=== PATIENT | male | born 1980 | race Caucasian/White ===

== ENCOUNTER 2021-12-22 11:18 | Emergency (ER) | payer BC, SELFPAY ==
[2021-12-22 11:20] VITALS: BP 150/103; PULSE 77; RESP 18; TEMP 36.8; O2SAT 97; BMI 32.5
[2021-12-22 11:52] VITALS: BP 150/103; PULSE 77; RESP 18; TEMP 36.8; O2SAT 97
--- NOTE | 2021-12-22 12:01 | HMH.EDUTC ---
[facility] [place] Impression: COVID-19 Sinusitis Qualifiers: Sinusitis location: unspecified location Chronicity: acute Recurrence: non-recurrent Qualified Code(s): J01.90 - Acute sinusitis, unspecified Disposition: Home, Self-Care Condition on Discharge: Good Instructions: DI for Sinusitis, DI for COVID-19 (Suspected or Confirmed ), Preventing the Spread of Coronavirus Discharge Instructions Additional Instructions: Drink plenty of fluids. Take tylenol or ibuprofen for pain or fever. Take the medications as directed. Follow up with your regular doctor. GO TO THE ER FOR ANY WORSENING SYMPTOMS Prescriptions: Brompheniramine/Pseudoephed/Dm [Bromfed Dm Cough Syrup] 5 ml PO Q6HP PRN #240 ml PRN Reason: Cough Transmission Status: Received by [facility] #[id number] Ibuprofen [Ibuprofen 800mg Tablet] 800 mg PO Q8HP PRN #30 tab PRN Reason: Moderate Pain Transmission Status: Pending to [facility] #[id number] methylPREDNISolone [Medrol] 4 mg PO DIRECTED 6 Days #21 packet Transmission Status: Received by [facility] #[id number] guaiFENesin [Mucinex 600mg tablet] 1 - 2 tab PO BIDP PRN #30 tab PRN Reason: Congestion Transmission Status: Received by [facility] #[id number] Azithromycin [Z-Kayode 250mg Tab*] 250 mg PO UD DOSE PK #6 tab Transmission Status: Received by [facility] #[id number] Referrals: Provider,Referral, MD [Primary Care Provider] - Time of Disposition: 12:11 Medical Decision Making - Medical Records Medical records reviewed: No: I reviewed the patient's medical records. - Garett Inquiry Pt receiving controlled substance: No Vital Signs: 12/22/21 11:20 12/22/21 11:52 Temperature 98.2 F 98.2 F Temperature Source Oral Pulse Rate 77 Pulse Rate [Left Brachial] 77 Respiratory Rate 18 18 Blood Pressure 150/103 H Blood Pressure [Left Arm] 150/103 H Blood Pressure Mean [Left Arm] 118 Blood Pressure Source [Left Arm] Automatic Cuff Blood Pressure Position [Left Arm] Sitting 02 Sat by Pulse Oximetry 97 Oxygen Delivery Method Room Air [facility] [place] - General Stated complaint: DILLON, congestion Time Seen by Provider: 12/22/21 11:30 Mode of Arrival: Ambulatory Source of Information: Patient Limitations: No Limitations Description of Symptoms (Recalled from Triage Doc. by RN): PATIENT C/O HEADACHE, CONGESTION AND DRY COUGH X 1 WEEK. REPORTS A POSITIVE AT HOME COVID TEST ON 12/17/21 HEENT Symptoms (Recalled from RN notes): Yes Resp Symptoms (Recalled from RN notes): Yes Skin Symptoms (Recalled from RN notes): No MS Symptoms (Recalled from RN notes): No Functional Status (Recalled from RN notes): WNL - History of Present Illness Provider Complaint: He states that he began to have covid symptoms last Saturday. He states that his worst complaint has been been the headache. He also has sinus congestion and a nonproductive cough. He denies shortness of breath and chest tightness. - Related Data Previous Rx's Medication Instructions Recorded Azithromycin [Z-Kayode 250mg Tab*] 250 mg PO UD DOSE PK #6 tab 12/22/21 Brompheniramine/Pseudoephed/Dm 5 ml PO Q6HP PRN #240 ml 12/22/21 [Bromfed Dm Cough Syrup] Ibuprofen [Ibuprofen 800mg 800 mg PO Q8HP PRN #30 tab 12/22/21 Tablet] guaiFENesin [Mucinex 600mg tablet] 1 - 2 tab PO BIDP PRN #30 tab 12/22/21 methylPREDNISolone [Medrol] 4 mg PO DIRECTED 6 Days #21 12/22/21 packet Allergies Allergy/AdvReac Type Severity Reaction Status Date / Time Penicillins Allergy Mild Verified 12/21/18 11:55 - Worker's Comp Is this a Worker's Comp case?: No [facility] History - Hepatitis A Screen Drug use history?: No High risk sexual behaviors?: No History of sexually transmitted infection?: No Currently employed?: No Childcare worker?: No Do you have indoor plumbing?: Yes Do you have electricity?: Yes Attestation statement:: This patient has been screened for Hepatitis A risk factors.
== END 2021-12-22 12:15 | disposition home or self-care (01) ==
PROVIDERS: Emergency Provider Nurse Practitioner Family
DX: U07.1 COVID-19 (principal); J01.90 Acute sinusitis, unspecified
CPT/HCPCS: 99202; G0463

== ENCOUNTER 2023-01-24 18:04 | Emergency (ER) | payer BC, SELFPAY ==
--- NOTE | 2023-01-24 19:07 | EXP.UTC ---
Discharge Plan Disposition Patient Disposition: Home, Self-Care Condition: Good Prescriptions Prescriptions: New azithromycin [Zithromax] 250 mg tablet 250 mg PO UD DOSE PK Qty: 6 0RF Rx Instructions: Take two (2) tablets today, then one (1) tablet days #2 thru #5 benzonatate [benzonatate] 100 mg capsule 100 mg PO TIDP PRN (Reason: Cough) Qty: 30 0RF Referrals Follow up/Referrals: Provider,Referral, MD [Primary Care Provider] - See instructions Activity Restrictions/Add. Instructions Additional Instructions/Restrictions: Drink plenty of fluids. Take tylenol or ibuprofen for pain or fever. Take the medications as directed. Follow up with your regular doctor. GO TO THE ER FOR ANY WORSENING SYMPTOMS You have to follow up with a primary care providers regarding your blood pressure. We are giving you a list of ones that are taking new patients. Clinical Impressions Clinical Impression: Sinusitis, Pharyngitis Instructions Patient Instructions: Sinusitis, DI for Sinusitis Discharge ED Provider: Agustín Mirza [facility] General Stated complaint: sore throat,headache Time Seen by Provider: 01/24/23 19:07 History of Present Illness Provider Complaint: He states that for the past 2 days he has had a sore throat, sinus congestion and he has felt bad. He has had a headache also. Related Data Previous Rx's Medication Instructions Recorded azithromycin 250 mg tablet 250 mg PO UD DOSE PK #6 tabs 01/24/23 (Zithromax) benzonatate 100 mg capsule 100 mg PO TIDP PRN Cough #30 caps 01/24/23 Allergies Allergy/AdvReac Type Severity Reaction Status Date / Time Penicillins Allergy Mild Verified 12/21/18 11:55 [facility] Disclaimer: The information contained in this section may have been updated after the patient was seen, as this information can be updated by other users. Social History Smoking Status: Unknown if ever smoked alcohol intake: never substance use type: denies use current occupational status: other Travel in the last 8 weeks: None household members: spouse and children housing: house ROS Obtained: Yes All systems reviewed & no additional complaints except as documented Constitutional Constitutional: Reports chills and Reports fever(s) Eyes Eyes: Denies eye discharge ENT Ears, Nose, Mouth, and Throat: Reports as per HPI Cardiovascular Cardiovascular: Denies chest pain Respiratory Respiratory: Denies chest congestion and Reports cough Gastrointestinal Gastrointestingal: Reports nausea; Denies abdominal pain, constipation, cramping, diarrhea or vomiting Musculoskeletal Musculoskeletal: Denies arthralgias Integumentary/Breasts Skin/Breast: Denies rash Neurologic Neurologic: Denies paresthesias Physical Exam General General appearance: alert and in no apparent distress Head Head exam: atraumatic, normocephalic and normal inspection Eye Eye exam: Present normal appearance, PERRL and EOMI ENT ENT exam: Present mucous membranes moist and normal external ear exam Expanded ENT Exam TM/Canal exam: Bilateral TM: erythema and bulging Nose exam: Absent sinus tenderness Mouth exam: Present normal external inspection; Absent drooling Teeth exam: Present normal inspection Throat exam: Present tonsillar erythema, tonsillomegaly and tonsillar exudate Neck Neck exam: Present normal inspection, full ROM and trachea midline; Absent tenderness, meningismus or lymphadenopathy Chest Chest inspection: Present normal inspection and symmetric chest wall rise; Absent tenderness Respiratory Respiratory exam: Present normal lung sounds bilaterally; Absent respiratory distress, wheezes or stridor Cardiovascular Cardiovascular exam: Present regular rate and normal rhythm; Absent systolic murmur or diastolic murmur Abdominal Exam Abdominal exam: Present soft and normal bowel sounds; Absent distention, tenderness, guarding, r
[2023-01-24 19:30] VITALS: BP 191/114; PULSE 75; RESP 22; TEMP 37; O2SAT 99; BMI 32.5
[2023-01-24 19:41] LABS: UTC Strep Screen (Rapid) Negative (Negative)
[2023-01-24 19:42] VITALS: BP 173/111; PULSE 75; RESP 22; TEMP 37; O2SAT 99
== END 2023-01-24 20:02 | disposition home or self-care (01) ==
PROVIDERS: Emergency Provider Nurse Practitioner Family
DX: J01.90 Acute sinusitis, unspecified (principal); R50.9 Fever, unspecified
CPT/HCPCS: 87880; 99212; 99214; G0463